=== PATIENT | female | born 1930 ===

== ENCOUNTER 2016-07-14 02:41 | Emergency (ER) | payer MEDICARE, MEDICAID ==
--- NOTE | 2016-07-14 03:40 | ED PDOC ---
HPI: General Adult Time Seen by Provider: 07/14/16 03:00 Chief Complaint (Nursing): Fever Chief Complaint (Provider): flu-like symptoms History Per: Patient History/Exam Limitations: no limitations Onset/Duration Of Symptoms: Days (2) Have you had recent travel within the past 21 days to any of the following countries: [place], [place], [place] or [place]?: No Current Symptoms Are (Timing): Still Present Additional Complaint(s): 86yo female with PMHx including HTN, high cholesterol presents to the ED, accompanied by family member, with c/o flu-like symptoms x 2 days. Patient reports cough productive of white phlegm, subjective fever, and sore throat. Denies v/d, chest pain, SOB. Past Medical History Reviewed: Historical Data, Nursing Documentation, Vital Signs Vital Signs: Last Vital Signs Temp 99.6 F 07/14/16 05:12 Pulse 86 07/14/16 07:06 Resp 17 07/14/16 07:06 BP 131/72 07/14/16 07:06 Pulse Ox 99 07/14/16 07:06 - Medical History PMH: HTN, Hypercholesterolemia, Hyperlipidemia, Hypothyroidism Denies: Chronic Kidney Disease - Surgical History Surgical History: No Surg Hx - Family History Family History: States: No Known Family Hx - Social History Current smoker - smoking cessation education provided: No Alcohol: None Drugs: Denies - Home Medications Home Medications: Ambulatory Orders Medication Instructions Recorded Enalapril Maleate [Vasotec] 10 mg PO DAILY 05/27/15 Rosuvastatin Calcium [Crestor] 40 mg PO HS 04/08/16 Dorzolamide HCl/Timolol Maleat 1 drop BOTHEYES BID 04/09/16 [Dorzolamide-Timolol Eye Drops] Levothyroxine [Synthroid] 50 mcg PO DAILY 04/09/16 Omeprazole 20 mg PO DAILY 04/09/16 Travoprost [Travatan Z] 1 drop BOTHEYES HS 04/09/16 Azithromycin [Zithromax] 250 mg PO DAILY #6 tab 07/14/16 - Allergies Allergies/Adverse Reactions: Allergies Allergy/AdvReac Type Severity Reaction Status Date / Time No Known Allergies Allergy Verified 05/27/15 09:21 Review of Systems ROS Statement: Except As Marked, All Systems Reviewed And Found Negative Constitutional: Positive for: Fever (subjective ), Other (flu-like symptoms ) ENT: Positive for: Throat Pain Cardiovascular: Negative for: Chest Pain Respiratory: Positive for: Cough. Negative for: Shortness of Breath Gastrointestinal: Negative for: Vomiting, Diarrhea Physical Exam - Reviewed Nursing Documentation Reviewed: Yes Vital Signs Reviewed: Yes - Physical Exam Appears: Positive for: Well, No Acute Distress Head Exam: Positive for: ATRAUMATIC, NORMAL INSPECTION, NORMOCEPHALIC Skin: Positive for: Normal Color, Warm, Dry Eye Exam: Positive for: Normal appearance, EOMI, PERRL ENT: Positive for: Normal ENT Inspection Neck: Positive for: Normal, Painless ROM, Supple Cardiovascular/Chest: Positive for: Regular Rate, Rhythm. Negative for: Murmur , Tachycardia Respiratory: Positive for: Normal Breath Sounds. Negative for: Wheezing, Respiratory Distress Gastrointestinal/Abdominal: Positive for: Normal Exam, Bowel Sounds, Soft. Negative for: Tenderness Back: Positive for: Normal Inspection. Negative for: L CVA Tenderness, R CVA Tenderness Extremity: Positive for: Normal ROM. Negative for: Deformity, Swelling Neurologic/Psych: Positive for: Alert, Oriented. Negative for: Motor/Sensory Deficits - ECG O2 Sat by Pulse Oximetry: 98 Pulse Ox Interpretation: Normal (RA) Medical Decision Making Medical Decision Makin: Impression: productive cough, subjective fever, sore throat; r/o flu vs. strep Plan: Tylenol 975mg PO flu, strep swabs reassess 0513: Flu and strep swabs negative. CXR ordered to r/o pneumonia. CXR no infiltrate noted by radiologist [id number]: Dx is URI and patient given Rx for z-roberto. CXR shows no clear infiltrate. Patient stable for d/c and advised to f/u w/ PCP and return to ED with any worsening or concerning symptoms. pt agreeable to plan. Scribe Attestation: Documented by Carmenza Perez acting as a scribe for Tacos Delong MD. Provider Scribe Attestation: All medical record entries made by the Scribe were at my direction and personally dictated by me. I have reviewed the chart and agree that the record accurately reflects my personal performance of the history, physical exam, medical decision making, and the department course for this patient. I have also personally directed, reviewed, and agree with the discharge instructions and disposition. Disposition - Clinical Impression Clinical Impression: Fever in adult, URI (upper respiratory infection) - Patient ED Disposition Is Patient to be Admitted: No Counseled Patient/Family Regarding: Studies Performed, Diagnosis, Need For Followup - Disposition Referrals: Kyra Schmidt MD [Primary Care Provider] - Disposition: Routine/Home Disposition Time: 05:35 Condition: GOOD Additional Instructions: follow up with your primary doctor in 1-2 days return to the ED With any worsening or concerning symptoms. Prescriptions: Azithromycin [Zithromax] 250 mg PO DAILY #6 tab Instructions: Upper Respiratory Infection (ED) Print Language: ARGENT[place]
[2016-07-14 05:43] VITALS: TEMP 99.6
[2016-07-14 07:07] VITALS: BP 131/72; PULSE 86; RESP 17
--- NOTE | 2016-07-14 09:05 | RAD ---
HISTORY: Cough. COMPARISON: 05/27/2015. TECHNIQUE: Chest PA and lateral FINDINGS: LUNGS: No active pulmonary disease. PLEURA: No significant pleural effusion identified. No pneumothorax apparent. CARDIOVASCULAR: No radiographic findings to suggest acute or significant cardiovascular disease. OSSEOUS STRUCTURES: No significant abnormalities. VISUALIZED UPPER ABDOMEN: Normal. OTHER FINDINGS: None. IMPRESSION: No active disease. No significant interval change compared to the prior examination(s).
[2016-07-15 11:05] VITALS: O2SAT 98
== END 2016-07-14 07:07 | disposition home or self-care (01) ==
LOC: H.ER 02:41
DX: J06.9 Acute upper respiratory infection, unspecified (principal); J02.9 Acute pharyngitis, unspecified; R05 Cough; E03.9 Hypothyroidism, unspecified; E78.00 Pure hypercholesterolemia, unspecified; I10 Essential (primary) hypertension

== ENCOUNTER 2016-07-20 10:32 | Emergency (ER) | payer MEDICARE, MEDICAID ==
[2016-07-20 10:42] VITALS: BP 150/56; PULSE 66; RESP 20; TEMP 97.6
[2016-07-20 10:43] VITALS: BMI 23.8
[2016-07-20 11:00] VITALS: O2SAT 98
--- NOTE | 2016-07-20 11:27 | ED PDOC ---
HPI: General Adult Time Seen by Provider: 07/20/16 11:20 Chief Complaint (Nursing): Anxiety Chief Complaint (Provider): anxiety History Per: Patient (86 y/o female notes anxiety after taking medication prescibed by PMD for ongoing cough. Patient was seen in ED and written for zithromax. States she completed 2 days prior. Was prescribed tablet for "albuterol." and states medication made her anxious and fearful. Patient denies any si/HI but has been having feelings of hopelessness.) Past Medical History Reviewed: Historical Data, Nursing Documentation, Vital Signs Vital Signs: Last Vital Signs Temp 97.6 F 07/20/16 10:42 Pulse 66 07/20/16 10:42 Resp 20 07/20/16 10:42 BP 150/56 L 07/20/16 10:42 Pulse Ox 98 07/20/16 14:58 - Medical History PMH: HTN, Hypercholesterolemia, Hyperlipidemia, Hypothyroidism Denies: Chronic Kidney Disease Other PMH: ?mass in pelvis - Surgical History Surgical History: No Surg Hx - Family History Family History: States: Unknown Family Hx - Home Medications Home Medications: Ambulatory Orders Medication Instructions Recorded Enalapril Maleate [Vasotec] 10 mg PO DAILY 05/27/15 Rosuvastatin Calcium [Crestor] 40 mg PO HS 04/08/16 Dorzolamide HCl/Timolol Maleat 1 drop BOTHEYES BID 04/09/16 [Dorzolamide-Timolol Eye Drops] Levothyroxine [Synthroid] 50 mcg PO DAILY 04/09/16 Omeprazole 20 mg PO DAILY 04/09/16 Travoprost [Travatan Z] 1 drop BOTHEYES HS 04/09/16 Azithromycin [Zithromax] 250 mg PO DAILY #6 tab 07/14/16 - Allergies Allergies/Adverse Reactions: Allergies Allergy/AdvReac Type Severity Reaction Status Date / Time No Known Allergies Allergy Verified 05/27/15 09:21 Review of Systems ROS Statement: Except As Marked, All Systems Reviewed And Found Negative Psych: Positive for: Anxiety Physical Exam - Reviewed Nursing Documentation Reviewed: Yes Vital Signs Reviewed: Yes - Physical Exam Appears: Positive for: Well, Non-toxic, No Acute Distress Head Exam: Positive for: ATRAUMATIC, NORMAL INSPECTION, NORMOCEPHALIC Skin: Positive for: Normal Color, Warm, DRY Eye Exam: Positive for: EOMI, Normal appearance, PERRL ENT: Positive for: Normal ENT Inspection Neck: Positive for: Normal, Painless ROM Cardiovascular/Chest: Positive for: Regular Rate, Rhythm Respiratory: Positive for: CNT, Normal Breath Sounds Gastrointestinal/Abdominal: Positive for: Normal Exam, Bowel Sounds, Soft Back: Positive for: Normal Inspection Extremity: Positive for: Normal ROM Neurologic/Psych: Positive for: Alert, Oriented - Laboratory Results Result Diagrams: 07/20/16 11:30 07/20/16 11:30 - ECG O2 Sat by Pulse Oximetry: 98 - Progress ED Course And Treament: EKG: SINUS BRADYCARDIA BPM; NO ECTOPY; NO ACUTE CHANGES SEEN BY CRISIS CLEARED BY DR. LATIF DIAGNOSIS ANXIETY XANAX 0.5 MG X 1 DOSE Disposition - Clinical Impression Clinical Impression: Anxiety, Anxiety attack - Patient ED Disposition Is Patient to be Admitted: No - Disposition Disposition: Routine/Home Disposition Time: 14:58 Condition: FAIR Instructions: Anxiety (ED) Print Language: ANGOLAN
[2016-07-20 11:41] LABS: BASO # 0.1 K/uL (0.0-0.2); BASO % 1.2 % (0.0-2.0); EOS # 0.3 K/uL (0.0-0.7); EOS % 4.6 % (0.0-4.0); HEMATOCRIT 34.2 % (34.0-47.0); LYMPH # 1.9 K/uL (1.0-4.3); MEAN CELL VOLUME 88.1 fl (81.0-99.0); MEAN CORPUSCULAR HEMOGLOBIN 29.6 pg (27.0-31.0); MEAN CORPUSCULAR HGB CONC 33.6 g/dL (33.0-37.0); MEAN PLATELET VOLUME 8.9 fl (7.2-11.7); MONO # 0.5 K/uL (0.0-0.8); MONO % 7.2 % (0.0-10.0); NEUT # 3.6 K/uL (1.8-7.0); NRBC % 0.1 % (0.0-0.0); WHITE BLOOD COUNT 6.3 K/uL (4.8-10.8)
[2016-07-20 11:49] LABS: ALCOHOL SERUM < 10 mg/dl (0-10); ALKALINE PHOSPHATASE 64 U/L (38-126); ALT/SGPT 33 U/L (9-52); AST/SGOT 32 U/L (14-36); BILIRUBIN,TOTAL 0.3 mg/dl (0.2-1.3); BLOOD UREA NITROGEN 18 mg/dl (7-17); CALCIUM 10.1 mg/dL (8.4-10.2); CARBON DIOXIDE 28 mmol/L (22-30); CHLORIDE 104 mmol/L (98-107); GFR AFRICAN-AMERICAN > 60; GLUCOSE,RANDOM 87 mg/dL (65-105); POTASSIUM 4.4 MMOL/L (3.6-5.0); SODIUM 141 mmol/l (132-148); TOTAL PROTEIN 8.3 G/DL (6.3-8.2)
[2016-07-20 12:19] LABS: THYROID STIMULATING HORMONE 1.91 mIU/ML (0.46-4.68)
[2016-07-20 13:17] LABS: RBC URINE < 1 /hpf (0-3); URINE BACTERIA RARE (<OCC); URINE BILIRUBIN NEGATIVE (NEGATIVE); URINE BLOOD NEGATIVE (NEGATIVE); URINE COLOR COLORLESS (YELLOW); URINE GLUCOSE (UA) NEG (Normal); URINE KETONE NEGATIVE (NEGATIVE); URINE LEUKOCYTE ESTERASE NEG Leu/uL (Negative); URINE PROTEIN NEGATIVE (NEGATIVE); URINE UROBILINOGEN 0.2-1.0 mg/dL (0.2-1.0)
--- NOTE | 2016-07-22 07:36 | CARD ---
APPROVED REPORT EKG Measurement Heart [id number] <Conclusion> Sinus bradycardia Borderline ECG
== END 2016-07-20 15:20 | disposition home or self-care (01) ==
LOC: H.ER 10:32
DX: F41.1 Generalized anxiety disorder (principal); E03.9 Hypothyroidism, unspecified; E78.00 Pure hypercholesterolemia, unspecified; I10 Essential (primary) hypertension; R00.1 Bradycardia, unspecified; R05 Cough
CPT/HCPCS: 80053; 81003; 82948; 84443; 84484; 85025; 87086; 99282; G0480